=== PATIENT | female | born 1990 | race Two or more races ===

== ENCOUNTER → 2024-07-29 | Outpatient (CLI) | payer MEDICAID, SELFPAY ==
--- NOTE | 2024-07-29 10:31 | XR_ITS ---
Examination: Breast ultrasound complete, bilateral Date and time of exam: July 29, 2024 10:40 AM Indications: Bilateral breast pain beginning 3 months ago, history left breast lumpectomy 2016 negative for carcinoma Technique: Real-time grayscale ultrasonographic imaging bilateral breasts, including all 4 quadrants as well as nipple retroareolar and axillary regions. Findings: Sonographic images right breast 12:00 cyst 6 x 7 mm No solid nodules Sonographic images left breast Benign multiple cysts, the largest in the 12:00 position 6 x 5 mm No solid nodules Impression: BI-RADS Category 2: Benign findings
== END | disposition home or self-care (01) ==
LOC: CDIM 10:21
PROVIDERS: PCP Physician Assistant Medical; Referring Provider Physician Assistant Medical; Visit Provider Physician Assistant Medical
DX: N64.4 Mastodynia (principal)
CPT/HCPCS: 76641

== ENCOUNTER 2024-09-11 14:21 | Emergency (ER) | payer MEDICAID, SELFPAY ==
[2024-09-11 14:26] VITALS: BP 129/84; PULSE 120; RESP 20; TEMP 37.4; O2SAT 99
--- NOTE | 2024-09-11 15:02 | XR_ITS ---
Exam: Chest PA, lateral 2 views Technique: Chest upright PA lateral 2 views Date and time of exam: 09/11/2024, 3:08 PM INDICATION: Cough COMPARISON: 09/03/2019 Findings: Normal heart size. No mediastinal adenopathy. No acute fracture No pulmonary edema or pneumonia. Impression: No active disease.
--- NOTE | 2024-09-11 15:03 | PD.EDURI ---
Upper Respiratory Inf. RME/HPI General Chief Complaint: Flu Like Symptoms Stated Complaint: BODYACHES, CHILLS, COUGH, BANEGAS Time Seen by Provider: 09/11/24 14:21 Arrival date/time: 09/11/24 14:21 This is a 33-year-old female that comes in with complaints of bodyaches, fever, chills, cough, headache, that started today. Patient denies past medical history. Patient denies any urinary symptoms. Patient denies possibility of . Related Data Previous Rx's ?Medication ?Instructions ?Recorded ibuprofen 600 mg tablet 600 mg PO QID pain/fever #30 tabs 06/01/19 ibuprofen 800 mg tablet 800 mg PO Q8H PRN pain #30 tabs 09/03/19 acetaminophen 500 mg tablet 1,000 mg (2 x 500 mg) PO Q6H PRN 11/01/22 (Tylenol Extra Strength) fever or pain #30 tabs ibuprofen 800 mg tablet 800 mg PO Q8H PRN fever or pain 11/01/22 #30 tabs ondansetron 4 mg disintegrating 4 mg PO Q6H PRN nausea and 11/01/22 tablet vomiting #10 tabs ondansetron 4 mg disintegrating 4 mg PO Q8H PRN nausea and 10/29/23 tablet vomiting #30 tabs cephalexin 500 mg capsule 500 mg PO TID 7 days #21 caps 09/11/24 ibuprofen 800 mg tablet 800 mg PO Q6H PRN pain #14 tabs 09/11/24 Allergies Allergy/AdvReac Type Severity Reaction Status Date / Time No Known Drug Allergies Allergy Unknown Verified 09/11/24 14:23 Course Orders Category Date Time Status Bedside COVID-19 Antigen Test NOW Care 09/11/24 15:02 Active Bedside Influenza A&B Antigen Test NOW Care 09/11/24 15:[address] abdomen pelvis wo con Stat Exams 09/11/24 16:47 Completed XR chest 2V Stat Exams 09/11/24 15:02 Completed HCG Qualitative,Urine Stat Lab 09/11/24 15:43 Completed Urinalysis, C/S if Indicated Stat Lab 09/11/24 15:43 Completed Urine Culture Stat Lab 09/11/24 15:43 Received Ibuprofen Tab [Motrin Tab] Med 09/11/24 15:02 Discontinued 800 mg PO X1 ONE Vital Signs Vital signs: Vital Signs Temperature 99.3 F 09/11/24 14:26 Pulse Rate 120 H 09/11/24 14:26 Respiratory Rate 20 09/11/24 14:26 Blood Pressure 129/84 09/11/24 14:26 Pulse Oximetry (%) 99 09/11/24 14:26 Oxygen Delivery Method Room Air 09/11/24 14:26 Upper Respiratory Infection MDM Narrative MDM Narrative:: ct abdomen and pelvis: Findings: No focal liver or splenic lesions No gallstones No pancreatic or adrenal mass No renal or ureteral calculi, no hydronephrosis No solid renal mass lesion on this noncontrast study Aorta normal size No bowel obstruction Fat-containing umbilical hernia Normal appendix No diverticulitis No bladder mass or bladder calculi Partially retroverted uterus The osseous structures are intact Impression: No renal or ureteral calculi, no hydronephrosis Mild bilateral renal parenchymal scar formation Normal appendix No bladder mass or bladder calculi Follow up with primary provider in 1-2 days. Come back to ED if symptoms change or worsenchest x ray: Findings: Normal heart size. No mediastinal adenopathy. No acute fracture No pulmonary edema or pneumonia. Impression: No active disease. Patient has been feeling better with ibuprofen and Tylenol. I encouraged patient to drink plenty of fluids. Patient's urine showed some blood patient states she is not on her menstrual cycle but she had blood in her urine. Will treat for possible urinary tract infection. Will give a dose of Rocephin here and will send patient home with antibiotics. Will send patient's urine for urine culture. Patient told to follow-up with primary provider in 1 to 2 days. Come back to the emergency room if symptoms change or worsen. Patient verbalizes understanding and is comfortable with plan of care. Medications / Prescriptions Medication administrations:: Medication Administration History Discontinued Medications Ibuprofen (Ibuprofen Tab 400 Mg Tablet) 800 mg PO X1 ONE Stop: 09/11/24 15:03 Last Admin: 09/11/24 16:11 Dose: 800 mg Documented By: Discharge Plan Plan Patient Disposition: HOME (Self Care) Patient condition on transfer: Stable Prescriptions/Referrals Prescriptions/Med Rec: New cephalexin 500 mg capsule 500 mg PO TID 7 Days Qty: 21 0RF ibuprofen 800 mg tablet 800 mg PO Q6H PRN (Reason: pain) Qty: 14 0RF No Action ibuprofen 600 mg tablet 600 mg PO QID Qty: 30 0RF ibuprofen 800 mg tablet 800 mg PO Q8H PRN (Reason: pain) Qty: 30 0RF ondansetron 4 mg tablet,disintegrating 4 mg PO Q6H PRN (Reason: nausea and vomiting) Qty: 10 0RF ibuprofen 800 mg tablet 800 mg PO Q8H PRN (Reason: fever or pain) Qty: 30 0RF acetaminophen [Tylenol Extra Strength] 500 mg tablet 1,000 mg PO Q6H PRN (Reason: fever or pain) Qty: 30 0RF ondansetron 4 mg tablet,disintegrating 4 mg PO Q8H PRN (Reason: nausea and vomiting) Qty: 30 0RF Referrals: Barrera Amador MD [Primary Care Provider] - In 1 week Problem List Clinical Impression: UTI (urinary tract infection), Hematuria, URI, acute Patient/Caregiver Discharge Instructions Discharge Activity: activity as tolerated Education Materials: ED Hematuria, ED CYSTITIS Female Adult Additional Instructions: Follow up with primary provider in 1-2 days. Come back to ED if symptoms change or worsen please continue to drink plenty of fluids. Please follow-up with urine culture with primary provider. Print Language: Azerbaijani Stand Alone Forms: [employer] Award Info., Patient Portal Info Letter PA/WAREHOUSE SHIPPER Supervising Physician PA/WAREHOUSE SHIPPER Supervising Physician: [email or web address]
[2024-09-11 15:53] LABS: Collection Type, Urine Voided
[2024-09-11 16:01] LABS: Bacteria,Urine Rare; Bilirubin,Urine Negative (Negative); Blood,Urine 2+ (Negative); Clarity,Urine Turbid (Clear/Hazy); Color,Urine Yellow (Lt Yel-Yel); Culture Indicated,Urine Not Indicated; Glucose, Urine Negative (Negative); HCG Qualitative,Urine Negative; Ketones,Urine 4+ (Negative); Leukocyte Esterase,Urine Negative (Negative); Nitrite,Urine Negative (Negative); PH,Urine 7.5 (5.0-7.0); Protein,Urine 1+ (Neg - Trace); RBC,Urine 53 /hpf (0-3); Specific Gravity,Urine 1.031 (1.001-1.035); Squamous Epithelial Cell,Urine 6 /hpf (0-5); Urobilinogen,Urine Negative mg/dL (0.0-1.0); WBC,Urine 5 /hpf (0-5)
[2024-09-11] MEDS: IBUPROFEN TAB 400 MG TABLET 800 MG PO (16:11)
--- NOTE | 2024-09-11 16:47 | XR_ITS ---
Examination: CT abdomen and pelvis without contrast. Coronal 3-D reconstructions. Sagittal 2-D reconstructions. Date and time of exam:September 11, 2024 1712 hrs. Indications: Headaches coughing blood in urine abdominal pain today Comparison: November 01, 2022 CTDI: vol (mGy): 11.1 DLP: (mGycm): 538 Technique: Axial images of the abdomen have been obtained, 3 mm slice thickness Intravenous contrast material has not been administered. Low dose protocols were performed. One or more of the following dose reduction techniques were used; automated exposure control, adjustment of the mA and/or KV according to patient size, use of iterative reconstruction technique. Findings: No focal liver or splenic lesions No gallstones No pancreatic or adrenal mass No renal or ureteral calculi, no hydronephrosis No solid renal mass lesion on this noncontrast study Aorta normal size No bowel obstruction Fat-containing umbilical hernia Normal appendix No diverticulitis No bladder mass or bladder calculi Partially retroverted uterus The osseous structures are intact Impression: No renal or ureteral calculi, no hydronephrosis Mild bilateral renal parenchymal scar formation Normal appendix No bladder mass or bladder calculi
[2024-09-11] MEDS: cefTRIAXone 1,000 MG, LIDOCAINE 1% 20 ML 2.1 ML IM (18:33)
[2024-09-11] MEDS: ACETAMINOPHEN 500 MG TABLET 1000 MG PO (18:35)
== END 2024-09-11 18:46 | disposition home or self-care (01) ==
PROVIDERS: Nurse Practitioner Family; Emergency Provider Emergency Medicine; PCP Family Medicine
DX: N39.0 Urinary tract infection, site not specified (principal); J06.9 Acute upper respiratory infection, unspecified
CPT/HCPCS: 71046; 74176; 81001; 81025; 87086; 96372; 99284; J0696; J3490; A9270